=== PATIENT | male | born 1975 | race Two or more races ===

== ENCOUNTER 2018-06-16 10:09 | Emergency (ER) | payer OTHER ==
[~2018-06-16] VITALS: Ht 182.9 cm; Wt 90.7 kg
[~2018-06-16 10:09] MED LIST: LIPITOR20 MG
== END 2018-06-16 14:22 | disposition home or self-care (01) ==
LOC: ER 10:09
DX: B34.9 Viral infection, unspecified (principal)

== ENCOUNTER 2020-03-12 12:18 | Emergency (ER) | payer OTHER ==
[~2020-03-12] VITALS: Ht 180.3 cm; Wt 90.7 kg
== END 2020-03-12 14:20 | disposition home or self-care (01) ==
LOC: ER 12:18
DX: N50.812 Left testicular pain (principal)